=== PATIENT | male | born 1955 | race Caucasian/White ===

== ENCOUNTER → 2017-06-25 15:32 | Outpatient (CLI) | payer MEDICAID, SELFPAY | PROVIDERS: PCP Internal Medicine Adolescent Medicine; Visit Provider Internal Medicine Adolescent Medicine | DX: G47.10 Hypersomnia, unspecified (principal); I10 Essential (primary) hypertension; E66.9 Obesity, unspecified | CPT/HCPCS: 95806 ==

== ENCOUNTER → 2017-07-03 09:11 | Outpatient (CLI) | payer MEDICAID, SELFPAY ==
[2017-07-03 14:18] LABS: Alanine Aminotransferase 31 U/L (12-78); Albumin Level 3.9 gm/dL (3.4-5.0); Albumin/Globulin Ratio 1.3 (1.1-1.8); Alkaline Phosphatase 71 U/L (46-116); Anion Gap 8.1 mEq/L (5-15); Aspartate Amino Transferase 26 U/L (15-37); Bilirubin,Total 0.8 mg/dL (0.2-1.0); Blood Urea Nitrogen 21 mg/dL (7-18); Calcium 8.8 mg/dL (8.5-10.1); Carbon Dioxide 34 mmol/L (21.0-32.0); Chloride 103 mmol/L (98-107); Creatinine,Serum 1.13 mg/dL (0.70-1.30); Estimated Glomerular Filt Rate 66 ml/min (>60); GFR (African American) 80 ML/MIN (>60); Globulin 3.1 gm/dl (1.3-3.2); Glucose 107 mg/dL (74-106); Potassium 4.1 mmoL/L (3.5-5.1); Sodium 141 mmol/L (136-145)
[2017-07-03 15:06] LABS: Basophils % 0.4 % (0.1-2.0); Eosinophils # 0.2 K/mm3 (0.0-0.4); Eosinophils % 3.4 % (0.1-12.0); Hematocrit 46.2 % (42.0-52.0); Hemoglobin 15.2 g/dL (14.1-18.0); Lymphocytes # 1.7 K/mm3 (0.7-4.5); Lymphocytes % 23.8 K/mm3 (10-50); Mean Corpuscular HGB Conc 32.9 g/dL (31.8-35.4); Mean Corpuscular Hemoglobin 29.3 pg (27.0-31.2); Mean Corpuscular Volume 89.1 fl (80-94); Mean Platelet Volume 7.9 fl (7.4-10.4); Monocytes # 0.5 K/mm3 (0.1-1.0); Monocytes % 6.6 % (1.7-9.3); Neutrophils # 4.6 K/mm3 (1.8-7.8); Neutrophils % 65.7 % (37.0-80.0); Platelet Count 172 K/mm3 (142-424); Red Blood Count 5.19 M/mm3 (4.60-6.20)
== END ==
PROVIDERS: PCP Internal Medicine Adolescent Medicine; Visit Provider Internal Medicine Adolescent Medicine
DX: R53.82 Chronic fatigue, unspecified (principal); E78.5 Hyperlipidemia, unspecified
CPT/HCPCS: 36415; 80053; 85025

== ENCOUNTER → 2017-08-06 10:18 | Outpatient (CLI) | payer MEDICAID, SELFPAY ==
[2017-08-06 14:23] LABS: Alanine Aminotransferase 31 U/L (12-78); Albumin Level 3.6 gm/dL (3.4-5.0); Albumin/Globulin Ratio 1.2 (1.1-1.8); Alkaline Phosphatase 74 U/L (46-116); Anion Gap 11.2 mEq/L (5-15); Aspartate Amino Transferase 18 U/L (15-37); Bilirubin,Total 0.7 mg/dL (0.2-1.0); Blood Urea Nitrogen 23 mg/dL (7-18); Calcium 8.3 mg/dL (8.5-10.1); Carbon Dioxide 31 mmol/L (21.0-32.0); Chloride 100 mmol/L (98-107); Chol/HDL Ratio 2.7 (1-3.5); Cholesterol 102 mg/dL (140-200); Creatinine,Serum 1.13 mg/dL (0.70-1.30); Estimated Glomerular Filt Rate 66 ml/min (>60); GFR (African American) 80 ML/MIN (>60); Glucose 137 mg/dL (74-106); HDL Cholesterol 38 mg/dL (27-67); LDL Cholesterol 46 mg/dL (0-130); Potassium 4.2 mmoL/L (3.5-5.1); Sodium 138 mmol/L (136-145); Total Protein,Serum 6.6 gm/dL (6.4-8.2); Triglycerides 89 mg/dL (30-200); Uric Acid 9.5 mg/dL (2.6-7.2); VLDL Cholesterol 18 mg/dL (0-40)
[2017-08-06 16:45] LABS: Basophils % 0.1 % (0.1-2.0); Eosinophils # 0.1 K/mm3 (0.0-0.4); Eosinophils % 0.7 % (0.1-12.0); Hematocrit 42.2 % (42.0-52.0); Hemoglobin 14.6 g/dL (14.1-18.0); Lymphocytes # 1.5 K/mm3 (0.7-4.5); Lymphocytes % 19.7 K/mm3 (10-50); Mean Corpuscular HGB Conc 34.5 g/dL (31.8-35.4); Mean Corpuscular Hemoglobin 30.4 pg (27.0-31.2); Mean Corpuscular Volume 88.2 fl (80-94); Mean Platelet Volume 8.8 fl (7.4-10.4); Monocytes # 0.5 K/mm3 (0.1-1.0); Monocytes % 6.2 % (1.7-9.3); Neutrophils # 5.6 K/mm3 (1.8-7.8); Neutrophils % 73.4 % (37.0-80.0); Platelet Count 150 K/mm3 (142-424); Red Blood Count 4.79 M/mm3 (4.60-6.20); Red Cell Distribution Width 12.5 % (11.5-17.5); White Blood Count 7.6 K/mm3 (4.8-10.8)
== END ==
PROVIDERS: PCP Internal Medicine Adolescent Medicine; Visit Provider Internal Medicine Adolescent Medicine
DX: E78.5 Hyperlipidemia, unspecified (principal); M10.9 Gout, unspecified
CPT/HCPCS: 36415; 80053; 80061; 84550; 85025

== ENCOUNTER → 2018-02-15 08:02 | Outpatient (CLI) | payer MEDICAID, SELFPAY ==
--- NOTE | 2018-02-15 08:07 | US_ITS ---
US abdomen complete HISTORY: ITS.REASON: ABDOMINAL SWELLING ORDERING PHYSICIAN: Samson Garcia MD PATIENT AGE: 62 years COMPARISON: None FINDINGS: PANCREAS:Unremarkable. No obvious mass or abnormal fluid collection. No ductal dilatation LIVER:Small hepatic cysts are once again noted as before. Homogeneous echogenicity. No intrahepatic biliary ductal dilatation evident RIGHT KIDNEY:Unremarkable. Normal size and echogenicity. No hydronephrosis LEFT KIDNEY:Unremarkable. No hydronephrosis. Normal size and echogenicity. GALLBLADDER:No gallstones, gallbladder wall thickening, pericholecystic fluid, or biliary dilatation. AORTA:No evidence of aneurysmal dilatation. SPLEEN:Unremarkable. Normal size and echogenicity ASCITES:None demonstrated. IMPRESSION: 1. No acute finding. 2. Unremarkable gallbladder ultrasound. 3. Small hepatic cysts
== END ==
PROVIDERS: Family Provider Internal Medicine Adolescent Medicine; PCP Internal Medicine Adolescent Medicine; Visit Provider Internal Medicine Adolescent Medicine
DX: R19.00 Intra-abdominal and pelvic swelling, mass and lump, unspecified site (principal)
CPT/HCPCS: 76700

== ENCOUNTER 2018-08-25 08:00 | Outpatient (RCR) | payer OTHER, SELFPAY ==
--- NOTE | 2018-07-14 12:28 | HMH.PTOPEV ---
PT Outpatient Evaluation Rehab PT Outpatient Evaluation Start: 07/14/18 12:02 Freq: Status: Active Protocol: Document 07/14/18 12:06 PDESERANTX (Rec: 07/14/18 12:28 PDESEROUX [id number]) Electronically Signed By Jericho Regalado, PT 07/14/18 12:06 Outpatient Therapy Subjective History Subjective History Pt. is a 62 year old male who presents to outpatient PT with complaints of acute R knee pain of insidious onset(but believes it is from his elliptical) 2 weeks ago. Pt. reports ambulating inclines/hill in his yard and ascending stairs are causes the pain. Pt. also reports the pain has gotten no better or no worse since the onset, and is activity dependent. Pt. denies having injections and diagnostic imaging for current pathology. PMH includes HTN, 4 abdominal hernia surgeries, history of low back pain, and high cholesterol. Current medications include Lisinopril , baby aspirin, Sildenafil, Diuretics, Nortriptyline, Diclofenac, and Carvedilol. Chief Complaint Pain Symptom Type Ache Sharp Symptoms Relieved By Rest/Positioning Symptoms Aggravated By Standing Physical Activity Prior Functional Limitations None Current Functional Limitations Standing Squatting Walking Stairs Symptom Description Activity Dependent Level of pain today (0-10) 0 Pain scale - at its best (0-10) 0 Pain scale - at its worst (0-10) 8 Hip/Knee Eval Gait Observation General Gait Pattern Observation No Deviations/Normal Assistive Device Assistive Devices None / NA Palpation Tenderness left Knee Palpation Finding None/Normal Hip Palpation Findings None/Normal right Knee Palpation Finding Tenderness Knee Palpation Overall Comment grade 2 +TTP femoral medial epicondyle Hip Palpation Findings None/Normal MMT left Hip Strength Reason Not Measured WFL Knee Strength Reason Not Measured WFL Knee Ext
== END 2018-08-25 13:00 | disposition home or self-care (01) ==
LOC: PT.CARL 08:00
PROVIDERS: Visit Provider Internal Medicine Adolescent Medicine
DX: S86.911A Strain of unspecified muscle(s) and tendon(s) at lower leg level, right leg, initial encounter (principal)
CPT/HCPCS: 97110; 97116; 97140; 97163

== ENCOUNTER → 2018-08-31 10:54 | Outpatient (CLI) | payer OTHER, SELFPAY ==
[2018-08-31 13:45] LABS: Basophils % 0.5 % (0.1-2.0); Eosinophils # 0.2 K/mm3 (0.0-0.4); Eosinophils % 2.7 % (0.1-12.0); Hematocrit 45.2 % (42.0-52.0); Hemoglobin 14.8 g/dL (14.1-18.0); Lymphocytes # 1.4 K/mm3 (0.7-4.5); Lymphocytes % 19.7 % (10-50); Mean Corpuscular HGB Conc 32.7 g/dL (31.8-35.4); Mean Corpuscular Hemoglobin 30.6 pg (27.0-31.2); Mean Corpuscular Volume 93.7 fl (80-94); Mean Platelet Volume 7.5 fl (7.4-10.4); Monocytes # 0.4 K/mm3 (0.1-1.0); Monocytes % 5.6 % (1.7-9.3); Neutrophils # 4.9 K/mm3 (1.8-7.8); Neutrophils % 71.4 % (37.0-80.0); Platelet Count 190 K/mm3 (142-424); Red Blood Count 4.82 M/mm3 (4.60-6.20); Red Cell Distribution Width 13.7 % (11.5-17.5); White Blood Count 6.8 K/mm3 (4.8-10.8)
[2018-08-31 15:16] LABS: Alanine Aminotransferase 26 U/L (12-78); Albumin Level 3.5 gm/dL (3.4-5.0); Albumin/Globulin Ratio 1.1 (1.1-1.8); Alkaline Phosphatase 91 U/L (46-116); Anion Gap 12.3 mEq/L (5-15); Aspartate Amino Transferase 21 U/L (15-37); Bilirubin,Total 0.6 mg/dL (0.2-1.0); Blood Urea Nitrogen 20 mg/dL (7-18); Calcium 8.5 mg/dL (8.5-10.1); Carbon Dioxide 29 mmol/L (21.0-32.0); Chloride 101 mmol/L (98-107); Chol/HDL Ratio 2.9 (1-3.5); Cholesterol 115 mg/dL (140-200); Creatinine,Serum 1.06 mg/dL (0.70-1.30); Estimated Glomerular Filt Rate 71 ml/min (>60); GFR (African American) 86 ML/MIN (>60); Globulin 3.2 gm/dl (1.3-3.2); Glucose 104 mg/dL (74-106); HDL Cholesterol 40 mg/dL (27-67); LDL Cholesterol 65 mg/dL (0-130); Potassium 4.3 mmoL/L (3.5-5.1); Sodium 138 mmol/L (136-145); Total Protein,Serum 6.7 gm/dL (6.4-8.2); Triglycerides 52 mg/dL (30-200); Uric Acid 7.3 mg/dL (2.6-7.2); VLDL Cholesterol 10 mg/dL (0-40)
== END ==
PROVIDERS: PCP Internal Medicine Adolescent Medicine; Visit Provider Internal Medicine Adolescent Medicine
DX: E78.5 Hyperlipidemia, unspecified (principal); M10.9 Gout, unspecified
CPT/HCPCS: 36415; 80053; 80061; 84550; 85025

== ENCOUNTER → 2019-03-16 10:52 | Outpatient (CLI) | payer OTHER, SELFPAY ==
[2019-03-16 14:03] LABS: Basophils % 0.6 % (0.1-2.0); Eosinophils # 0.3 K/mm3 (0.0-0.4); Eosinophils % 5.4 % (0.1-12.0); Hematocrit 45.3 % (42.0-52.0); Lymphocytes # 1.7 K/mm3 (0.7-4.5); Lymphocytes % 28.4 % (10-50); Mean Corpuscular HGB Conc 30.9 g/dL (31.8-35.4); Mean Corpuscular Hemoglobin 30.1 pg (27.0-31.2); Mean Corpuscular Volume 97.3 fl (80-94); Mean Platelet Volume 8.2 fl (7.4-10.4); Monocytes # 0.4 K/mm3 (0.1-1.0); Neutrophils # 3.6 K/mm3 (1.8-7.8); Neutrophils % 58.6 % (37.0-80.0); Platelet Count 205 K/mm3 (142-424); Red Blood Count 4.66 M/mm3 (4.60-6.20); Red Cell Distribution Width 14.4 % (11.5-17.5); White Blood Count 6.1 K/mm3 (4.8-10.8)
[2019-03-16 16:39] LABS: Alanine Aminotransferase 23 U/L (12-78); Albumin Level 3.7 gm/dL (3.4-5.0); Albumin/Globulin Ratio 1.2 (1.1-1.8); Alkaline Phosphatase 66 U/L (46-116); Anion Gap 11.3 mEq/L (5-15); Aspartate Amino Transferase 25 U/L (15-37); Bilirubin,Total 0.7 mg/dL (0.2-1.0); Blood Urea Nitrogen 26 mg/dL (7-18); Calcium 8.9 mg/dL (8.5-10.1); Carbon Dioxide 31 mmol/L (21.0-32.0); Chloride 99 mmol/L (98-107); Chol/HDL Ratio 2.9 (1-3.5); Cholesterol 103 mg/dL (140-200); Creatinine,Serum 1.17 mg/dL (0.70-1.30); Estimated Glomerular Filt Rate 63 ml/min (>60); GFR (African American) 76 ML/MIN (>60); Glucose 96 mg/dL (74-106); HDL Cholesterol 35 mg/dL (27-67); LDL Cholesterol 53 mg/dL (0-130); Potassium 4.3 mmoL/L (3.5-5.1); Prostate Specific Ag Screen 1.3 ng/mL (0.0-4.0); Sodium 137 mmol/L (136-145); Thyroid Stimulating Hormone 1.42 uIU/ml (0.358-3.740); Total Protein,Serum 6.7 gm/dL (6.4-8.2); Triglycerides 75 mg/dL (30-200); VLDL Cholesterol 15 mg/dL (0-40)
== END ==
PROVIDERS: PCP Internal Medicine Adolescent Medicine; Visit Provider Internal Medicine Adolescent Medicine
DX: R35.1 Nocturia (principal); N40.1 Benign prostatic hyperplasia with lower urinary tract symptoms; E78.5 Hyperlipidemia, unspecified; R06.09 Other forms of dyspnea
CPT/HCPCS: 36415; 80053; 80061; 84443; 85025; G0103

== ENCOUNTER → 2020-09-19 09:51 | Outpatient (CLI) | payer OTHER, SELFPAY ==
[2020-09-19 14:34] LABS: Basophils % 0.5 % (0.1-2.0); Eosinophils # 0.2 K/mm3 (0.0-0.4); Eosinophils % 3.5 % (0.1-12.0); Hematocrit 44.1 % (42.0-52.0); Hemoglobin 14.5 g/dL (14.1-18.0); Lymphocytes # 1.6 K/mm3 (0.7-4.5); Lymphocytes % 24.7 % (10-50); Mean Corpuscular Hemoglobin 30.7 pg (27.0-31.2); Mean Corpuscular Volume 93.3 fl (80-94); Mean Platelet Volume 7.6 fl (7.4-10.4); Monocytes # 0.4 K/mm3 (0.1-1.0); Monocytes % 5.4 % (1.7-9.3); Neutrophils # 4.4 K/mm3 (1.8-7.8); Neutrophils % 65.8 % (37.0-80.0); Platelet Count 169 K/mm3 (142-424); Red Blood Count 4.72 M/mm3 (4.60-6.20); Red Cell Distribution Width 13.6 % (11.5-17.5); White Blood Count 6.6 K/mm3 (4.8-10.8)
[2020-09-19 14:41] LABS: Chloride 100 mmol/L (98-107); Potassium 4.1 mmoL/L (3.5-5.1); Sodium 137 mmol/L (136-145)
[2020-09-19 14:44] LABS: Alanine Aminotransferase 18 U/L (12-78); Albumin Level 3.9 g/dl (3.5-5.0); Albumin/Globulin Ratio 1.4 (1.1-1.8); Alkaline Phosphatase 69 U/L (38-126); Anion Gap 10.1 mEq/L (5-15); Aspartate Amino Transferase 33 U/L (17-59); Bilirubin,Total 0.8 mg/dl (0.2-1.3); Blood Urea Nitrogen 20 mg/dl (9-20); Calcium 8.8 mg/dl (8.4-10.2); Carbon Dioxide 31 mmol/L (22.0-30.0); Cholesterol 103 mg/dl (140-200); Estimated Glomerular Filt Rate 75 ml/min (>60); GFR (African American) 91 ML/MIN (>60); Globulin 2.7 g/dL (1.3-3.2); Glucose 110 mg/dl (74-100); Hemoglobin A1C 5.9 % (4.0-6.0); Total Protein,Serum 6.6 g/dl (6.3-8.2); Triglycerides 88 mg/dl (30-150); VLDL Cholesterol 18 mg/dL (0-40)
[2020-09-19 14:45] LABS: HDL Cholesterol 34 mg/dl (40-60)
== END ==
PROVIDERS: Visit Provider Internal Medicine Adolescent Medicine
DX: E78.5 Hyperlipidemia, unspecified (principal); I10 Essential (primary) hypertension; Z86.39 Personal history of other endocrine, nutritional and metabolic disease
CPT/HCPCS: 36415; 80053; 80061; 83036; 85025

== ENCOUNTER → 2020-10-23 10:53 | Outpatient (POV) | payer OTHER, SELFPAY | PROVIDERS: Visit Provider Dermatology | DX: Z00.00 Encounter for general adult medical examination without abnormal findings (principal) ==

== ENCOUNTER → 2021-01-01 10:04 | Outpatient (POV) | payer OTHER, SELFPAY | PROVIDERS: Visit Provider Dermatology | DX: Z00.00 Encounter for general adult medical examination without abnormal findings (principal) ==

== ENCOUNTER → 2021-03-19 12:55 | Outpatient (POV) | payer OTHER, SELFPAY | PROVIDERS: Visit Provider Dermatology | DX: Z00.00 Encounter for general adult medical examination without abnormal findings (principal) ==

== ENCOUNTER → 2021-05-24 12:55 | Outpatient (CLI) | payer MEDICARE, OTHER, SELFPAY ==
[2021-05-24 13:54] LABS: Basophils % 0.4 % (0.1-2.0); Eosinophils # 0.3 K/mm3 (0.0-0.4); Eosinophils % 4.6 % (0.1-12.0); Hematocrit 46.5 % (42.0-52.0); Hemoglobin 15.2 g/dL (14.1-18.0); Lymphocytes # 1.8 K/mm3 (0.7-4.5); Lymphocytes % 24.7 % (10-50); Mean Corpuscular HGB Conc 32.7 g/dL (31.8-35.4); Mean Corpuscular Hemoglobin 31.5 pg (27.0-31.2); Mean Corpuscular Volume 96.2 fl (80-94); Mean Platelet Volume 8.2 fl (7.4-10.4); Monocytes # 0.5 K/mm3 (0.1-1.0); Monocytes % 6.4 % (1.7-9.3); Neutrophils # 4.6 K/mm3 (1.8-7.8); Platelet Count 190 K/mm3 (142-424); Red Blood Count 4.83 M/mm3 (4.60-6.20); Red Cell Distribution Width 14.5 % (11.5-17.5); White Blood Count 7.3 K/mm3 (4.8-10.8)
[2021-05-24 14:29] LABS: Chloride 100 mmol/L (98-107)
[2021-05-24 14:30] LABS: Sodium 136 mmol/L (136-145)
[2021-05-24 14:32] LABS: Alanine Aminotransferase 16 U/L (12-78); Alkaline Phosphatase 69 U/L (38-126); Aspartate Amino Transferase 32 U/L (17-59); Bilirubin,Total 0.6 mg/dl (0.2-1.3); Blood Urea Nitrogen 25 mg/dl (9-20); Carbon Dioxide 30 mmol/L (22.0-30.0); Cholesterol 118 mg/dl (140-200); Estimated Glomerular Filt Rate 75 ml/min (>60); GFR (African American) 91 ML/MIN (>60); Triglycerides 67 mg/dl (30-150); VLDL Cholesterol 13 mg/dL (0-40)
[2021-05-24 14:33] LABS: Albumin Level 4.1 g/dl (3.5-5.0); Albumin/Globulin Ratio 1.6 (1.1-1.8); Calcium 9.3 mg/dl (8.4-10.2); Globulin 2.6 g/dL (1.3-3.2); Glucose 116 mg/dl (74-100); HDL Cholesterol 45 mg/dl (40-60); Total Protein,Serum 6.7 g/dl (6.3-8.2)
[2021-05-24 14:45] LABS: Direct LDL Cholesterol 51.85 mg/dL (100-129)
[2021-05-24 15:51] LABS: Chol/HDL Ratio 2.6 (1-3.5)
== END ==
PROVIDERS: Visit Provider Internal Medicine Adolescent Medicine
DX: I10 Essential (primary) hypertension (principal); E78.5 Hyperlipidemia, unspecified; Z86.39 Personal history of other endocrine, nutritional and metabolic disease
CPT/HCPCS: 36415; 80053; 80061; 83036; 85025

== ENCOUNTER → 2022-01-13 10:31 | Outpatient (CLI) | payer MEDICARE, OTHER, SELFPAY ==
--- NOTE | 2022-01-13 10:40 | XR_ITS ---
FINAL REPORT CLINICAL HISTORY: low back pain FINDINGS: AP and lateral views of the lumbar spine were obtained. There is no prior exam for comparison. There is no acute fracture or malalignment. Vertebral body height and disc space height are preserved. There is multilevel degenerative disc disease most pronounced at L4-L5. The paraspinal soft tissues are normal. IMPRESSION: No acute osseous abnormality of the lumbar spine. Reviewed, Interpreted and Dictated by Serena Olivier MD Transcribed by Marlene Ramírez Authenticated and [facility]
--- NOTE | 2022-01-13 10:40 | XR_ITS ---
FINAL REPORT CLINICAL HISTORY: low back pain and left hip pain FINDINGS: AP and frog leg views of the left hip were obtained. There is no prior exam for comparison. There is no acute fracture or dislocation. There is mild degenerative disease of the hips bilaterally. Soft tissues are within normal limits. IMPRESSION: No acute osseous abnormality of the left hip. If pain persists, MR is recommended. Reviewed, Interpreted and Dictated by Serena Olivier MD Transcribed by Marlene Ramírez Authenticated and [facility]
== END ==
PROVIDERS: PCP Internal Medicine Adolescent Medicine; Visit Provider Family Medicine
DX: M25.552 Pain in left hip (principal); M54.50 Low back pain, unspecified
CPT/HCPCS: 72100; 73502

== ENCOUNTER 2022-03-20 10:00 | Outpatient (RCR) | payer MEDICARE, OTHER, SELFPAY ==
--- NOTE | 2022-02-18 13:57 | HMH.PTOPEV ---
PT Outpatient Evaluation Rehab PT Outpatient Evaluation Start: 02/18/22 12:52 Freq: Status: Active Protocol: Document 02/18/22 12:52 ZARI (Rec: 02/18/22 13:57 PDESEROUX [id number]) E-signed By Jericho Regalado, PT Outpatient Therapy Subjective History Subjective History Pt. is a 66 year old male who presents to [facility] Outpatient Physical Therapy Services in [place] for the initial evaluation this date( 02/18/22) w/ c's/o subacute and intermittent lumbar/LLE P! , numbness/tingling, and stiffness of traumatic onset since November 2021. Pt. reports taking a [address] [place] back for vacation w/ a lot of pot holes along the way when symptom onset began. Pt. reports having no symptom relief w/ Prednsione pack nor Advil. Pt. reports having symptom relief w/ walking. Pt. reports symptoms worsen w/ prolonged sitting, initial standing after prolonged sitting, and sneezing. Pt. denies having any recent injections nor diagnostic imaging for current complaint, however, pt. reports positive findings for bulging discs in the lumbar spine w/ previous imaging years ago. Pt. reports leaving Thursday(02/22/22) for vacation for 1-2wks. Pt. also reports having to use a cane at night when going to the restroom secondary to current complaint of P!. Pt. denies history of cancer(self) , denies pacemaker, denies latex allergy, denies history of diabetes, reports medicational allergy to Penicillin. Current medications include Carvedilol , Lisinopril, and Spirolactone . PMH includes Hypertension and Hernia Repair Surgeries. Chief Complaint
== END 2022-04-07 10:38 | disposition home or self-care (01) ==
LOC: PT.CARL 10:00
PROVIDERS: PCP Family Medicine; Visit Provider Family Medicine
DX: M54.50 Low back pain, unspecified (principal)
CPT/HCPCS: 97110; 97140; 97163

== ENCOUNTER 2022-05-14 10:00 | Outpatient (RCR) | payer MEDICARE, OTHER, SELFPAY ==
--- NOTE | 2022-04-14 12:09 | HMH.PTOPEV ---
PT Outpatient Evaluation Rehab PT Outpatient Evaluation Start: 04/14/22 10:55 Freq: Status: Active Protocol: Document 04/14/22 10:56 ZARI (Rec: 04/14/22 12:08 PDESEROUX [id number]) E-signed By Jericho Regalado, PT Outpatient Therapy Subjective History Subjective History Pt. is a 66 year old male whom presents to [facility] Outpatient Physical Therapy Services in [place] for the initial evaluation this date( 04/14/22) w/ c/o chronic and intermitent R-sided lumbar and RLE shooting/stabbing P! and stiffness of insidious onset for 15 years, but has worsened in the last year. Pt. reports noticing symptoms worsen w/ prolong sittind and driving, but also w/ prolonged standing . Pt. reports having some symptom relief w/ standing up and ambulating post prolonged sitting. Pt. denies having recent diagnostic imaging for the lumbar spine/hip, denies having any recent injections neither. Pt. reports having previous Physical Therapy in the past treating similar symptoms that gave some symptom relief that included using the TENs unit, stretches , and ice. Pt. denies history of cancer(self), denies pacemaker, denies latex allergy, denies history of diabetes, reports medicational allergy to Penicillin. Current medications include Allopurinol, Aspirin, Atomoxetine, Atorvastatin, Nortriptyline, Carvedilol, Lisinopril, and Spirolactone, and Sildenafil. PMH includes Hypertension and Hernia Repair Surgeries. Chief Complaint Pain,Spasms,Stiff,Paresthesia Symptom Type Ache,Sharp,Stabbing,Shooting Symptoms Relieved By Rest/Positioning,OTC Meds, Activity Symptoms Aggravated By Sit
== END 2022-05-22 14:56 | disposition home or self-care (01) ==
LOC: PT.CARL 10:00
PROVIDERS: PCP Family Medicine; Visit Provider Family Medicine
DX: M54.41 Lumbago with sciatica, right side
CPT/HCPCS: 20560; 20561; 97010; 97012; 97014; 97110; 97163; G0283

== ENCOUNTER → 2022-06-10 14:19 | Outpatient (CLI) | payer MEDICARE, OTHER, SELFPAY ==
--- NOTE | 2022-06-10 14:23 | MR_ITS ---
FINAL REPORT CLINICAL HISTORY: low back pain X 15 YEARS FINDINGS: Multiplanar MR imaging of the lumbar spine was performed without contrast. There is leftward curvature. On the sagittal T2-weighted images, disc degeneration is seen at multiple levels. Endplate changes are seen at multiple levels. There is mild anterolisthesis of L4 on 5. There is no evidence of fracture. The conus has an unremarkable appearance. T12-L1: Facet arthropathy is present. There is no significant canal stenosis or neural foraminal narrowing. L1-2: An annular bulge is present. Facet arthropathy and osteophytes are present. There is mild left neural foraminal narrowing. L2-3: An annular bulge is present. Facet arthropathy and osteophytes are present. There is a left foraminal disc protrusion with mild right and moderate left neural foraminal narrowing. There is mild central canal stenosis with an AP diameter of the thecal sac of 8 mm. L3-4: An annular bulge is present. Facet arthropathy and osteophytes are present. There is moderate bilateral neural foraminal narrowing. There is mild central canal stenosis with an AP diameter of the thecal sac of 8 mm. L4-5: An annular bulge is present. Facet arthropathy and osteophytes are present. There is bilateral lateral recess stenosis. There is moderate bilateral neural foraminal narrowing. There is mild central canal stenosis with an AP diameter of the thecal sac of 7 mm. L5-S1: Facet arthropathy is present. There is no significant canal stenosis or neural foraminal narrowing. Note is made of spurring of the sacroiliac joints. IMPRESSION: Multilevel degenerative disc disease and spondylosis. Mild central canal stenosis from L2-3 to L4-5. Left foraminal disc protrusion at L2-3. Reviewed, Interpreted and Dictated by Scott Gregorio III, MD Transcribed by Elvira Lemons Authenticated and [facility]
== END ==
PROVIDERS: PCP Family Medicine; Visit Provider Family Medicine
DX: M54.50 Low back pain, unspecified (principal)
CPT/HCPCS: 72148; 76376

== ENCOUNTER → 2022-06-26 09:56 | Outpatient (CLI) | payer MEDICARE, OTHER, SELFPAY ==
--- NOTE | 2022-06-26 09:57 | CA_ITS ---
APPROVED REPORT Exam: Exercise Treadmill Technologist: Mara Bran, Ht: 6 ft 4 in Wt: 267 lbs BSA: 2.50 m2 HR: 74 bpm BP: 143/91 mmHg Medical History Medications: Lisinopril,,,,, Aspirin,,,,, Allopurinol,,,,, Atorvastatin,,,,, Carvedilol,,,,, SpirOnolactone,,,,, Nortriptyline,,,,, Atomoxetine,,,,, Viagra,,,,, Stress Test Details Test: Matias HR Resting HR: 80 bpm Max Heart Rate (APMHR): 154.417966 bpm Max HR Achieved: 127 bpm Target HR (85% APMHR): 130.040111 bpm % of APMHR: 82.47 Recovery HR: 77 bpm BP Resting BP: 126/91 mmHg Max BP: 182/94 mmHg Recovery BP: 142.0/92.0 mmHg ECG Resting ECG: NSR, PVC, RBBB Clinical Exercise duration: 06:00 min Highest Stage Achieved: II Exercise capacity: 7.0 METs Stress ECG Conclusion Exercised 6:00 on Matias Protocol, completing stage II. Max HR: 127 % of PM: 82% Max BP: 182/94 METs: 7.0 Test stopped due to: SOA Symptoms: No CP. Arrhythmias/Ectopy: Occ isolated PVC. ST-T Changes: NST wave changes in lead III in recovery, the ST response to exercise appears w/in normal. Conclusion: Within normal GXT to the HR achieved (82% if PM). Blunted HR response on Carvedilol. GXT only (no imaging) Test Summary REST . . . . . . . Sitting REST . . . . . . . Standing REST . . . . . . . Standing REST 03:39 0.0 0.0 80 . 126/ 91 . . Stage 1 01:00 10.0 1.7 92 . . . . Stage 1 02:00 10.0 1.7 103 . . . . Stage 1 03:00 10.0 1.7 110 . 156/ 90 . . Stage 2 01:00 12.0 2.5 116 . . . . Stage 2 02:00 12.0 2.5 122 . . . . Stage 2 03:00 12.0 2.5 126 . 182/ 94 . Stop exercise at 06:00 RECOVERY 01:00 0.0 0.0 112 . . . . RECOVERY 02:00 0.0 0.0 93 . . . . RECOVERY 03:00 0.0 0.0 83 . . . . RECOVERY 04:00 0.0 0.0 92 . . . . RECOVERY 05:00 0.0 0.0 86 . 164/ 94 . . RECOVERY 06:00 0.0 0.0 83 . 164/ 94 . . RECOVERY 07:00 0.0 0.0 80 . 165/ 98 . . RECOVERY 08:00 0.0 0.0 79 . 165/ 98 . . RECOVERY 09:00 0.0 0.0 77 . 142/ 92 . . RECOVERY 09:06 0.0 0.0 78 . 142/ 92 . . Electronically signed by : Samson Garcia MD 06/27/2022 21:20:40
== END ==
PROVIDERS: PCP Family Medicine; Visit Provider Family Medicine
DX: R06.09 Other forms of dyspnea (principal); I10 Essential (primary) hypertension
CPT/HCPCS: 93017

== ENCOUNTER → 2023-04-03 08:34 | Outpatient (CLI) | payer MEDICARE, SELFPAY ==
[2023-04-03 09:04] LABS: Basophils # 0.1 K/mm3 (0-0.2); Basophils % 0.7 % (0.1-2.0); Eosinophils # 0.2 K/mm3 (0.0-0.4); Eosinophils % 3.2 % (0.1-12.0); Hematocrit 46.8 % (42.0-52.0); Hemoglobin 15.8 g/dL (14.1-18.0); Lymphocytes # 1.7 K/mm3 (0.7-4.5); Lymphocytes % 24.2 % (10-50); Mean Corpuscular HGB Conc 33.7 g/dL (31.8-35.4); Mean Corpuscular Volume 97.7 fl (80-94); Mean Platelet Volume 8.2 fl (7.4-10.4); Monocytes # 0.4 K/mm3 (0.1-1.0); Neutrophils # 4.6 K/mm3 (1.8-7.8); Neutrophils % 65.9 % (37.0-80.0); Platelet Count 154 K/mm3 (142-424); Red Blood Count 4.79 M/mm3 (4.60-6.20); Red Cell Distribution Width 13.4 % (11.5-17.5)
[2023-04-03 10:25] LABS: Alanine Aminotransferase 25 U/L (12-78); Albumin/Globulin Ratio 1.5 (1.1-1.8); Alkaline Phosphatase 87 U/L (38-126); Anion Gap 12.6 mEq/L (5-15); Aspartate Amino Transferase 34 U/L (17-59); Bilirubin,Total 0.3 mg/dl (0.2-1.3); Blood Urea Nitrogen 23 mg/dl (9-20); Carbon Dioxide 32 mmol/L (22.0-30.0); Chloride 99 mmol/L (98-107); Chol/HDL Ratio 2.6 (1-3.5); Cholesterol 110 mg/dl (140-200); Estimated Glomerular Filt Rate 75 ml/min (>60); GFR (African American) 90 ML/MIN (>60); Globulin 2.7 g/dL (1.3-3.2); Glucose 104 mg/dl (74-100); HDL Cholesterol 42 mg/dl (40-60); Potassium 4.6 mmoL/L (3.5-5.1); Sodium 139 mmol/L (136-145); Total Protein,Serum 6.7 g/dl (6.3-8.2); Triglycerides 106 mg/dl (30-150); VLDL Cholesterol 21 mg/dL (0-40)
[2023-04-03 10:36] LABS: Direct LDL Cholesterol 51.64 mg/dL (100-129)
[2023-04-03 10:54] LABS: Thyroid Stimulating Hormone 2.39 uIU/mL (0.465-4.68)
== END ==
PROVIDERS: PCP Family Medicine; Visit Provider Family Medicine
DX: I10 Essential (primary) hypertension (principal); R53.83 Other fatigue; Z00.00 Encounter for general adult medical examination without abnormal findings; Z87.891 Personal history of nicotine dependence
CPT/HCPCS: 36415; 80053; 80061; 84443; 85025

== ENCOUNTER 2023-05-12 11:00 | Outpatient (RCR) | payer MEDICARE, SELFPAY ==
--- NOTE | 2023-04-21 14:47 | HMH.PTOPEV ---
PT Outpatient Evaluation Rehab PT Outpatient Evaluation Start: 04/21/23 12:57 Freq: Status: Active Protocol: Document 04/21/23 12:57 REYESOUJustin (Rec: 04/21/23 14:12 [email or web address] [id number]) E-signed By Jericho Regalado, PT Outpatient Therapy Subjective History Subjective History Pt. is a 67 year old male who presents to [facility] Outpatient Physical Therapy Services in [place] for the initial evaluation this date(04/21/23) w/ c/o subacute and intermittent LLE hip and limb P!, numbness, and burning of traumatic onset since the first of this month. Pt. reports he went camping for the weekend in his camper and spent the whole weekend negotiating uneven and unlevel terrain when symptoms initially began. Pt. vocalizes having a history of similar symptoms in the past that was provided with symptom relief through Physical Therapy in the past. Pt. reports doing some of the exercises previously, states having some symptom relief w/ those exercises, however, states not having complete symptom relief w/ exercises. Pt. denies having any recent diagnostic imaging for current complaint, however, vocalizes having a history of L-sided L4/L5 disc protrusion and mild central canal stenosis per MRI report in 2021 of the lumbar spine pt. states. Pt. denies having any recent injections for current complaint. Pt. reports having some symptom relief w/ taking OTC Advil. Pt. reports symptoms worsen w/ lifting the LLE, extending the lumbar spine after prolonged sitting, and bending over. Pt. reports symptoms intermittently have
== END 2023-05-18 15:23 | disposition home or self-care (01) ==
LOC: PT 11:00
PROVIDERS: PCP Family Medicine; Visit Provider Nurse Practitioner Family
DX: M54.50 Low back pain, unspecified (principal)
CPT/HCPCS: 97110; 97163

== ENCOUNTER 2023-10-08 10:03 | Outpatient (CLI) | payer MEDICARE, SELFPAY ==
[2023-10-08 16:50] LABS: Basophils % 0.6 % (0.1-2.0); Eosinophils # 0.2 K/mm3 (0.0-0.4); Eosinophils % 2.9 % (0.1-12.0); Hematocrit 49.1 % (42.0-52.0); Hemoglobin 15.5 g/dL (14.1-18.0); Lymphocytes # 1.4 K/mm3 (0.7-4.5); Lymphocytes % 19.6 % (10-50); Mean Corpuscular HGB Conc 31.7 g/dL (31.8-35.4); Mean Corpuscular Hemoglobin 31.7 pg (27.0-31.2); Mean Corpuscular Volume 100.3 fl (80-94); Mean Platelet Volume 8.5 fl (7.4-10.4); Monocytes # 0.5 K/mm3 (0.1-1.0); Monocytes % 6.6 % (1.7-9.3); Neutrophils # 5.2 K/mm3 (1.8-7.8); Neutrophils % 70.2 % (37.0-80.0); Platelet Count 146 K/mm3 (142-424); Red Cell Distribution Width 13.8 % (11.5-17.5); White Blood Count 7.4 K/mm3 (4.8-10.8)
[2023-10-08 17:00] LABS: Alanine Aminotransferase 16 U/L (12-78); Albumin Level 3.9 g/dl (3.5-5.0); Albumin/Globulin Ratio 1.6 (1.1-1.8); Alkaline Phosphatase 67 U/L (38-126); Anion Gap 8.6 mEq/L (5-15); Aspartate Amino Transferase 26 U/L (17-59); Bilirubin,Total 0.7 mg/dl (0.2-1.3); Blood Urea Nitrogen 18 mg/dl (9-20); Calcium 9.1 mg/dl (8.4-10.2); Carbon Dioxide 31 mmol/L (22.0-30.0); Chloride 102 mmol/L (98-107); Chol/HDL Ratio 3.1 (1-3.5); Cholesterol 100 mg/dl (140-200); Estimated Glomerular Filt Rate 75 ml/min (>60); GFR (African American) 90 ML/MIN (>60); Globulin 2.5 g/dL (1.3-3.2); Glucose 122 mg/dl (74-100); HDL Cholesterol 32 mg/dl (40-60); Potassium 4.6 mmoL/L (3.5-5.1); Sodium 137 mmol/L (136-145); Total Protein,Serum 6.4 g/dl (6.3-8.2); Triglycerides 69 mg/dl (30-150); VLDL Cholesterol 14 mg/dL (0-40)
[2023-10-08 17:10] LABS: Direct LDL Cholesterol 47.35 mg/dL (100-129)
[2023-10-09 12:45] LABS: Hemoglobin A1C 5.8 % (4.0-6.0)
== END 2023-10-08 23:59 | disposition home or self-care (01) ==
LOC: LAB.DROPOF 10-09 10:04
PROVIDERS: PCP Family Medicine; Visit Provider Family Medicine
DX: I10 Essential (primary) hypertension (principal); R73.09 Other abnormal glucose; Z87.891 Personal history of nicotine dependence
CPT/HCPCS: 80053; 80061; 83036; 85025

== ENCOUNTER 2023-10-27 14:55 | Outpatient (POV) | payer MEDICARE, SELFPAY | END 2023-10-27 23:59 | disposition home or self-care (01) | LOC: SC 14:55 | PROVIDERS: PCP Family Medicine; Visit Provider Dermatology | DX: Z00.00 Encounter for general adult medical examination without abnormal findings (principal) ==

== ENCOUNTER 2024-11-04 11:58 | Outpatient (CLI) | payer MEDICARE, SELFPAY ==
[2024-11-02 16:43] LABS: Basophils # 0.1 K/mm3 (0-0.2); Basophils % 0.7 % (0.1-2.0); Eosinophils # 0.6 Kmm3 (0.0-0.4); Eosinophils % 6.7 % (0.1-12.0); Hematocrit 46.1 % (42.0-52.0); Hemoglobin 15.3 g/dL (14.1-18.0); Immature Granulocytes # 0.02 10^3uL; Immature Granulocytes % 0.2 %; Lymphocytes # 1.5 K/mm3 (0.7-4.5); Lymphocytes % 18.2 % (10-50); Mean Corpuscular HGB Conc 33.2 g/dL (31.8-35.4); Mean Corpuscular Hemoglobin 31.6 pg (27.0-31.2); Mean Corpuscular Volume 95.2 fl (80-94); Monocytes # 0.7 K/mm3 (0.1-1.0); Monocytes % 8.3 % (1.7-9.3); Neutrophils # 5.5 K/mm3 (1.8-7.8); Neutrophils % 65.9 % (37.0-80.0); Nucleated Red Blood Cells # 0 10^3/uL; Nucleated Red Blood Cells % 0 %; Platelet Count 152 K/mm3 (142-424); Red Blood Count 4.84 M/mm3 (4.60-6.20); Red Cell Distribution Width-SD 45.7 fL; White Blood Count 8.4 K/mm3 (4.8-10.8)
[2024-11-02 19:24] LABS: Alanine Aminotransferase 18 U/L (12-78); Albumin Level 4.2 g/dl (3.5-5.0); Albumin/Globulin Ratio 1.8 (1.1-1.8); Alkaline Phosphatase 65 U/L (38-126); Anion Gap 5.7 mEq/L (5-15); Aspartate Amino Transferase 27 U/L (17-59); Bilirubin,Total 0.9 mg/dl (0.2-1.3); Blood Urea Nitrogen 17 mg/dl (9-20); Calcium 8.8 mg/dl (8.4-10.2); Carbon Dioxide 29 mmol/L (22.0-30.0); Chloride 106 mmol/L (98-107); Estimated Glomerular Filt Rate 96 ml/min (>60); GFR (African American) 116 ML/MIN (>60); Globulin 2.4 g/dL (1.3-3.2); Glucose 119 mg/dl (74-100); Potassium 4.7 mmoL/L (3.5-5.1); Sodium 136 mmol/L (136-145); Total Protein,Serum 6.6 g/dl (6.3-8.2)
[2024-11-02 20:03] LABS: Prostate Specific Ag Screen 1.7 ng/ml (0.0-4.0); Thyroid Stimulating Hormone 1.23 uIU/mL (0.465-4.68)
[2024-11-02 20:58] LABS: HIV Combo NEGATIVE (Negative)
[2024-11-02 21:03] LABS: Hepatitis C Ab Qual. W/ RFX REACTIVE (Negative)
[2024-11-03 08:42] LABS: Hemoglobin A1C 5.6 % (4.0-6.0)
== END 2024-11-04 23:59 | disposition home or self-care (01) ==
LOC: LAB.DROPOF 12:01
PROVIDERS: PCP Family Medicine; Visit Provider Family Medicine
DX: I10 Essential (primary) hypertension (principal); Z11.59 Encounter for screening for other viral diseases; Z12.5 Encounter for screening for malignant neoplasm of prostate; R73.09 Other abnormal glucose
CPT/HCPCS: 80053; 83036; 84443; 85025; 86803; 87389; 87522; G0103

== ENCOUNTER 2024-11-21 14:07 | Outpatient (CLI) | payer MEDICARE, SELFPAY ==
--- OUTSIDE RECORDS SUMMARY | 2024-11-21 14:11 | XMS_ITS ---
Laboratory report Created on: November 08, 2024 BIRD DHILLON : 1955 Sex: Male Author Organization Unknown PROBLEMS Problems List Code Description RESULTS Laboratory Orders Date Order Code Test 2024-11-02 [id number] HCV RT-PCR, MARTINA T (NON-GRAPH) Laboratory Results Date LOINC Test Value Unit Reference Range Interpre tation 2024-11-02 [id number] HEPATITIS C QUANTITATION HCVTND IU/ML
--- NOTE | 2024-11-21 14:30 | CT_ITS ---
FINAL REPORT TECHNIQUE: Thin section axial images were obtained through the lungs using a low-dose technique per lung cancer screening protocol. Reconstruction images were obtained using the axial data. Exam was performed using dose reduction technique. This study was performed with techniques to keep radiation doses as low as reasonably achievable (ALARA). Individualized dose reduction techniques using automated exposure control or adjustment of mA and/or kV according to the patient's size were employed. CLINICAL HISTORY: lung cancer screening, PREVIOUS SMOKER, QUIT 30YRS AGO, SMOKED 1PPD FOR 16 YEARS COMPARISON: None FINDINGS: CTDLvol: 2.90 DLP: 105.51 Former smoker, quit 30 years ago 16 pack year history Lungs: No acute pulmonary abnormality. There is a lobular nodule in the anterior right lower lobe measuring 22 x 17 x 15 mm in size, noncalcified. There is evidence of prior granulomatous disease noted. Lymph nodes: No thoracic lymphadenopathy. Mediastinum: Heart size is normal. A small pericardial effusion is present. Pleura: No pleural effusion. Other: There are hypodense liver lesions, that may represent cysts. IMPRESSION: Lobular anterior right lower lobe nodule, up to 22 mm in size, noncalcified. Lung RADS: 4A Recommendation: PET/CT Reviewed, Interpreted and Dictated by Serena Olivier MD Transcribed by Sara Estrada Authenticated and [facility]
== END 2024-11-21 23:59 | disposition home or self-care (01) ==
LOC: RAD 14:09
PROVIDERS: PCP Family Medicine; Visit Provider Family Medicine
DX: R91.1 Solitary pulmonary nodule (principal); Z87.891 Personal history of nicotine dependence; Z12.2 Encounter for screening for malignant neoplasm of respiratory organs
CPT/HCPCS: 71271

== ENCOUNTER 2025-05-24 11:14 | Outpatient (CLI) | payer MEDICARE, SELFPAY ==
--- OUTSIDE RECORDS SUMMARY | 2007-11-25 06:41 | XMS_ITS | Continuity of Care Document ---
Author Organization [facility] Address [address] [place] [address] Care Team Providers Care Special Procedures Technologist Name Role Phone Toño GOMEZ, Hazel Unavailable Unavailable Blake Lion MD Unavailable Unavailable Advance Directives Directive Yes / No Effective Date File Name No Information Encounters Encounter Description Practice Location Reason(s) For Visit Diagnoses Date Provider Providers Copied on Encounter [facility], [address] [place] [address], [facility], [facility] No Information [phone] Toño Oliva. [address] [place] [address], [facility] [place] [address], [facility], . tel:[phone] Referring Provider: Hayden Owusu Jr, MD S, [address] [place], [address]. tel:[phone] lting Provider: Blake Lion, [address] [facility] [address], [address], [address]. tel:[phone] Family History Family Member Type Diagnosis Age At Onset No Information Payers Payer name Insurance type Covered constitution party ID Authoriza tijose(s) [employer] PPO CI [id number] Social History Type Description Quantity Date Captured Comments Sex Male Smoking Status No Information Chief Complaint And Reason For Visit No Information Reason For Referral Reason For Referral No Information History Of Present Illness Encounter Date Complaint History Of Prese nt Illness No Information Functional Status Date Functional Assessmen t No Information Instructions Date Instruction Additional Infor mation No Information Assessments Type Assessment Date No Information Patient Care Teams Name Effective Dates (start - stop) Status Members No Information
--- OUTSIDE RECORDS SUMMARY | 2025-05-24 11:23 | XMS_ITS | Clinical Summary ---
Author Organization Healthcare Address [address] [place] [address] Care Team Providers Care Technical Professional Name Role Phone Samson Garcia MD Primary Care Provider + [phone] Allergies Active Allergy Reactions Criticality Noted Date Comments Penicillins Swelling High 04/11/2024 Medications spironolactone (Aldactone) 50 MG tablet 1 tablet (50 mg) 1 (one) time each day. 4 Active allopurinol (Zyloprim) 300 MG tablet Take 1 tablet (300 mg) by mouth 1 (one) time each day. 4 Active atomoxetine (Strattera) 40 MG capsule TAKE ONE CAPSULE BY MOUTH ONCE DAILY FOR 90 DAYS 4 Active atorvastatin (Lipitor) 10 MG tablet 10 MG ORALLY DAILY FOR 90 DAYS 4 Active carvedilol (Coreg) 25 MG tablet 2 (two) times a day with meals. 4 Active lisinopril 20 MG tablet every night. 4 Active nortriptyline (Pamelor) 25 MG capsule TAKE 1 CAPSULE BY MOUTH EVERY DAY AT BEDTIME FOR DEPRESSION FOR 90 DAYS 4 Active Garlic-Parsley tablet Take by mouth. Activ e GARLIC PO Take by mouth 2 (two) times a day. Active TURMERIC-BASILIO PO Take by mouth 1 (one) time each day. Active aspirin 81 MG EC tablet Take 1 tablet (81 mg) by mouth every night. Active HYDROcodone-beatriz taminophen ([place]) 5-325 MG tablet Take 1 tablet (5 mg of hydrocodone) by mouth every 6 (six) hours if needed for severe pain or moderate pain. 12 tablet 4 Active Active Problems Problem Noted Date Diagnosed Date Basal cell carcinoma (BCC) of skin of face 04/11 Social History Tobacco Use Types Packs/Day Years Used Date Smoking Tobacco: Former Cigarettes 1 15 1 972 - 1987 Smokeless Tobacco: Never Tobacco Cessation:Counseling Given: Not Answered Alcohol Use Standard Drinks/Week Comments Yes 0 (1 standard drink = 0.6 oz pur e alcohol) weekly Sex and Gender Information Value Date Recorded Sex Assigned at Not on file Legal Sex Male 6:16 PM EDT Gender Identity Not on file Sexual Orientation Not on file Last Filed Vital Signs Vital Sign Reading Time Taken Comments Blood Pressure 123/83 06/03/2024 4:15 PM EST Pulse 74 06/03/2024 4:15 PM EST Temperature 36.3 C (97.3 F) 06/03/2024 4:15 PM EST Respiratory Rate 15 06/03/2024 4:15 PM EST Oxygen Saturation 96% 06/03/2024 4:15 PM EST Inhaled Oxygen Concentration - - Weight 117 kg (257 lb 4.4 oz) 06/03/2024 12:25 P M EST Height 193 cm (6' 4 ) 06/03/2024 12:25 PM EST Body Mass Index 31.32 06/03/2024 12:25 PM EST Plan of Treatment Health Maintenance Due Date Last Done Comments [facility]-Depression Screening 1955 [facility]-Hepatitis C Screening 1955 [facility]-Medicare Annual Wellness (AWV) 1955 [facility]-/Child/Adol SDOH Screenings 1955 [facility]- SDOH Screenings 12/20/1973 [facility]-Adult SDOH Screenings 12/20/1973 [facility]-DTaP,Tdap,and Td Vaccines (1 - Tdap) 12/20/1974 [facility]-Zoster Vaccines (1 of 2) 12/20/1974 CT Colonography 12/20/2000 Colonoscopy 12/20/2000 FIT-DNA 12/20/2000 FIT 12/20/2000 FOBT 12/20/2000 Sigmoidoscopy 12/20/2000 [facility]-Colorectal Cancer Screening 12/20/2000 [facility]-Abdominal Aortic Aneurysm (AAA) Screening 12/20/2020 [facility]-Pneumococcal Vaccine: 50+ Years (2 of 2 - PCV) 02/05/2022 02/05/2021 [id number] Vaccine ( season) 2025 06/03/2022, 04/25/2021, 09/13/2020, Additional history exists [facility]-Influenza Vaccine (#1) 02/20/202504/20, 04/07/2023, 04/09/2022, Additional history exists [facility]-RSV Vaccine: 60+ Years or (1 - 1-dose 75+ series) 12/20/2030 [facility]-Obesity Intervention Completed 024, 05/23/2024, 05/16/2024, Additional history exists HPV Vaccines Aged Out No longer eligi ble based on patient's age to complete this topic [facility]-HIB Vaccines Aged Out No longer e ligible based on patient's age to complete this topic [facility]-Hepatitis A Vaccines Aged Out No longer eligible based on patient's age to complete this topic [facility]-IPV Vaccines Aged Out No longer e ligible based on patient's age to complete this topic [facility]-Rotavirus Vaccines Aged Out No lo nger eligible based on patient's age to complete this topic Insurance MEDICARE [employer]ET[employer] Care Teams Technical Professional Relationship Specialty Start Date End Date Samson Garcia MD [address] [place] [address] PCP - General 11/02/20
--- NOTE | 2025-05-24 11:33 | XR_ITS ---
FINAL REPORT CLINICAL HISTORY: pain FINDINGS: AP, lateral and odontoid views of the cervical spine were obtained. There is no prior exam for comparison. There is no acute fracture or malalignment. Vertebral body height is preserved. Multilevel degenerative disc disease is most pronounced at C3-4 and C4-5. The precervical soft tissues are normal. IMPRESSION: No acute osseous abnormality of the cervical spine. Degenerative disease. Reviewed, Interpreted and Dictated by Serena Olivier MD Transcribed by Joslyn Magallon Authenticated and [facility]
--- NOTE | 2025-05-24 11:33 | XR_ITS ---
FINAL REPORT CLINICAL HISTORY: pain FINDINGS: Two views of the right hand were obtained. There is no prior exam for comparison. There is no acute fracture or dislocation. There is deformity of the head of the 5th proximal phalanx which could be related to old fracture. There is ulnar subluxation at the 5th PIP joint. Multi joint degenerative disease is most pronounced at the 5th PIP joint. There are several punctate radiodensities adjacent to the 5th MCP joint which could be foreign bodies. IMPRESSION: No acute osseous abnormality of the right hand. Subluxation of the 5th PIP joint. Possible foreign bodies. Reviewed, Interpreted and Dictated by Serena Olivier MD Transcribed by Joslyn Magallon Authenticated and [facility]
--- NOTE | 2025-05-24 11:33 | XR_ITS ---
FINAL REPORT CLINICAL HISTORY: pain FINDINGS: Three views of the right shoulder were obtained. There is no prior exam for comparison. There is no fracture or dislocation. Mild AC joint degenerative disease is noted. Soft tissues are unremarkable. IMPRESSION: No acute osseous abnormality of the right shoulder. Degenerative disease. Reviewed, Interpreted and Dictated by Serena Olivier MD Transcribed by Joslyn Magallon Authenticated and . [facility]
--- NOTE | 2025-05-24 11:33 | XR_ITS ---
FINAL REPORT CLINICAL HISTORY: pain FINDINGS: Two views of the left hand were obtained. There is no prior exam for comparison. There is no acute fracture or dislocation. Mild multi joint degenerative disease. There is no acute soft tissue abnormality. IMPRESSION: No acute osseous abnormality of the left hand. Degenerative disease. Reviewed, Interpreted and Dictated by Serena Olivier MD Transcribed by Joslyn Magallon Authenticated and . [facility]
--- NOTE | 2025-05-24 11:33 | XR_ITS ---
FINAL REPORT CLINICAL HISTORY: pain FINDINGS: Three views of the left shoulder were obtained. There is no prior exam for comparison. There is no fracture or dislocation. There is mild AC joint degenerative disease. Soft tissues are unremarkable. IMPRESSION: No acute osseous abnormality of the left shoulder. Degenerative disease. Reviewed, Interpreted and Dictated by Serena Olivier MD Transcribed by Joslyn Magallon Authenticated and [facility]
[2025-05-24 12:10] LABS: Uric Acid 5.5 mg/dl (3.5-8.5)
[2025-05-25 12:13] LABS: RA Latex Turbid. 326.5 IU/mL (<14.0)
[2025-05-25 18:10] LABS: Antinuclear Antibodies, IFA Positive (.)
[2025-05-26 12:15] LABS: Hematocrit 51.7 % (42.0-52.0); Hemoglobin 15.3 g/dL (14.1-18.0); Immature Granulocytes % 0.4 %; Mean Corpuscular HGB Conc 29.6 g/dL (31.8-35.4); Mean Corpuscular Hemoglobin 31.2 pg (27.0-31.2); Mean Corpuscular Volume 105.5 fl (80-94); Nucleated Red Blood Cells % 0 %; Platelet Count 180 K/mm3 (142-424); Red Blood Count 4.90 M/mm3 (4.60-6.20); Red Cell Distribution Width-SD 54.7 fL; White Blood Count 7.7 K/mm3 (4.8-10.8)
[2025-05-26 12:24] LABS: Chloride 101 mmol/L (98-107)
[2025-05-26 12:25] LABS: Albumin Level 4.0 g/dl (3.5-5.0); Potassium 4.7 mmoL/L (3.5-5.1); Sodium 140 mmol/L (136-145)
[2025-05-26 12:27] LABS: Anion Gap 13.7 mEq/L (5-15); Blood Urea Nitrogen 18 mg/dl (9-20); Carbon Dioxide 30 mmol/L (22.0-30.0); Creatinine,Serum 0.90 mg/dl (0.66-1.25); Estimated Glomerular Filt Rate 84 ml/min (>60); GFR (African American) 101 ML/MIN (>60)
[2025-05-26 12:28] LABS: Alanine Aminotransferase 16 U/L (12-78); Albumin/Globulin Ratio 1.3 (1.1-1.8); Alkaline Phosphatase 56 U/L (38-126); Aspartate Amino Transferase 26 U/L (17-59); Bilirubin,Total 0.7 mg/dl (0.2-1.3); Calcium 8.9 mg/dl (8.4-10.2); Globulin 3.0 g/dL (1.3-3.2); Glucose 106 mg/dl (74-100); Total Protein,Serum 7.0 g/dl (6.3-8.2)
== END 2025-05-24 23:59 | disposition home or self-care (01) ==
LOC: LAB 11:15
PROVIDERS: PCP Family Medicine; Visit Provider Family Medicine
DX: S63.236A Subluxation of proximal interphalangeal joint of right little finger, initial encounter (principal); M19.012 Primary osteoarthritis, left shoulder; M19.011 Primary osteoarthritis, right shoulder; M19.042 Primary osteoarthritis, left hand; M50.31 Other cervical disc degeneration, high cervical region; M50.321 Other cervical disc degeneration at C4-C5 level; R93.6 Abnormal findings on diagnostic imaging of limbs
CPT/HCPCS: 36415; 72040; 73030; 73120; 80053; 84550; 85025; 85651; 86038; 86431